=== PATIENT | male | born 1980 | race Caucasian/White ===

== ENCOUNTER 2016-10-22 11:12 | Emergency (ER) | payer SELFPAY ==
[~2016-10-22] VITALS: Ht 182.9 cm; Wt 84.1 kg
[~2016-10-22 11:12] MED LIST: ACETAMINOPHEN W1 TA6 PO; AUGMENTIN 875 M1 TAB PO; CEPHALEXIN500 M1 PO; FLEXERIL 1010 MG/TAB PO; KLONOPIN 0.5MG0.5 MG PO; KLONOPIN WAFERS1 MG PO; LEXAPRO10 MG PO; LORTAB 5/500 501 TAB PO; NAPROSYN500 MG PO; NEXIUM PO; NO HOME MEDICATIONS; NORCO 325 MG-51 TAB PO; NORCO 325 MG-7.1 TAB PO; PERCOCET 325 MG1 TA2 PO; PREDNISONE10 MG PO; PREDNISONE20 MG PO; PROAIR HFA0.09 MG/AC IH; SOMA 350MG350 MG/TAB PO; TRIAMCINOLONE A15 GM TP; TUSS PO; ULTRAM 50MG TAB50 MG; XANAX .25M0.25 MG/TA PO; XANAX 0.5MG0.5 MG PO; XANAX 1MG1 MG PO
[2016-10-22 11:14] VITALS: BP 119/70; PULSE 65; TEMP 98.2
== END 2016-10-22 12:05 | disposition home or self-care (01) ==
LOC: COL.ER 11:12
DX: L23.7 Allergic contact dermatitis due to plants, except food (principal); F41.9 Anxiety disorder, unspecified
CPT/HCPCS: J1100

== ENCOUNTER 2018-06-07 10:59 | Emergency (ER) | payer SELFPAY ==
[~2018-06-07] VITALS: Ht 182.9 cm; Wt 79.5 kg
[2018-06-07 11:07] VITALS: BP 169/68; TEMP 97.9
[2018-06-07 11:37] LABS: COLLECTION METHOD CLEAN CATCH
[2018-06-07 11:45] LABS: MUCOUS Present /lpf; PH 6 (5-8); SQUAMOUS EPITHELIAL 0-2 /hpf; URINE APPEARANCE Clear; URINE BACTERIA None Seen /hpf; URINE BILIRUBIN Negative (NEGATIVE); URINE BLOOD Negative (NEGATIVE); URINE COLOR Yellow; URINE GLUCOSE Negative (NEGATIVE); URINE KETONE 1+ (NEGATIVE); URINE LEUKOCYTE ESTERASE Negative (NEGATIVE); URINE NITRATE Negative (NEGATIVE); URINE PROTEIN(semi-quant) 1+ (NEGATIVE); URINE RBC 0-2 /hpf; URINE UROBILINOGEN Negative (NEGATIVE); URINE WBC 0-2 /hpf
[2018-06-07 11:53] LABS: TRICYCLIC ANTIDEPRESS URINE NEGATIVE
[2018-06-07 12:05] LABS: BASO # 0.1 (0.0-0.2); EOS # 0.1 (0.0-0.7); GRAN # 4.6 (1.4-6.5); GRAN % 67.9 % (42.2-75.2); HEMATOCRIT 41.6 % (42.0-52.0); HEMOGLOBIN 14.1 g/dl (13.5-18.0); LYMPH # 1.5 (1.2-3.4); LYMPH % 21.4 % (20.0-51.0); MEAN CELL VOLUME 92 fl (80.0-100.0); MEAN CORPUSCULAR HEMOGLOBIN 31 pg (27.0-31.0); MEAN CORPUSCULAR HGB CONC 34 g/dl (33.0-37.0); MEAN PLATELET VOLUME 11.2 fl (7.4-10.4); MONO # 0.6 (0.1-0.6); MONO % 8.4 % (1.7-9.3); PLATELET COUNT 257 K/mm3 (130-400); RED BLOOD COUNT 4.53 M/mm3 (4.20-5.60); REDCELL DISTRIBUTION WIDTH-CV 12.6 % (11.5-14.5)
[2018-06-07 12:12] LABS: ALANINE AMINOTRANSFERASE 31 U/L (21-72); ALKALINE PHOSPHATASE 84 U/L (50-136); ANION GAP 6 mmol/L (7-16); AST,SGOT 39 U/L (15-37); BILIRUBIN,TOTAL 0.6 mg/dL (0.0-1.0); BLOOD UREA NITROGEN 16 mg/dL (9-20); CALCIUM 9.2 mg/dL (8.4-10.2); CARBON DIOXIDE 26 mmol/L (22-30); CHLORIDE 106 mmol/L (98-107); CREATININE, serum 0.76 mg/dL (0.66-1.25); GLUCOSE 100 mg/dL (74-106); SODIUM 138 mmol/L (137-145); TOTAL PROTEIN 6.7 gm/dL (6.4-8.2)
[2018-06-07 12:14] LABS: ALCOHOL(ethanol),MEDICAL < 10 mg/dL
[2018-06-07 12:24] LABS: TROPONIN-I < 0.012 ng/mL (0.000-0.034)
[2018-06-07 13:22] VITALS: PULSE 79
== END 2018-06-07 13:22 | disposition home or self-care (01) ==
LOC: COL.ER 10:59
PROVIDERS: Nurse Practitioner Primary Care
DX: F41.9 Anxiety disorder, unspecified (principal); F15.90 Other stimulant use, unspecified, uncomplicated; F12.90 Cannabis use, unspecified, uncomplicated; F17.210 Nicotine dependence, cigarettes, uncomplicated
CPT/HCPCS: J2060; J7030

== ENCOUNTER 2018-06-28 02:18 | Emergency (ER) | payer SELFPAY ==
[~2018-06-28] VITALS: Ht 182.9 cm; Wt 84.1 kg
[2018-06-28 02:27] VITALS: BP 137/87; TEMP 98
[2018-06-28] MEDS ORDERED: ZITHROMAX 250M250 MG PO (04:12)
[2018-06-28 04:19] VITALS: PULSE 63
== END 2018-06-28 04:20 | disposition home or self-care (01) ==
LOC: COL.ER 02:18
DX: J40 Bronchitis, not specified as acute or chronic (principal); F17.210 Nicotine dependence, cigarettes, uncomplicated; F12.90 Cannabis use, unspecified, uncomplicated
CPT/HCPCS: J1885

== ENCOUNTER 2018-08-22 13:25 | Emergency (ER) | payer SELFPAY ==
[~2018-08-22] VITALS: Ht 182.9 cm; Wt 81.8 kg
[~2018-08-22 13:25] MED LIST changes: +ZITHROMAX 250M250 MG PO
[2018-08-22 13:32] VITALS: BP 136/86; PULSE 95; TEMP 97.7
== END 2018-08-22 15:09 | disposition left against medical advice (07) ==
LOC: COL.ER 13:25
DX: R51 Headache (principal); F12.10 Cannabis abuse, uncomplicated; F15.10 Other stimulant abuse, uncomplicated; F17.210 Nicotine dependence, cigarettes, uncomplicated
CPT/HCPCS: J1885

== ENCOUNTER 2018-09-05 12:56 | Emergency (ER) | payer SELFPAY ==
[2018-09-05 13:10] VITALS: BP 133/84; PULSE 97; TEMP 98.4
== END 2018-09-05 13:52 | disposition left against medical advice (07) ==
LOC: COL.ER 12:56
DX: R06.02 Shortness of breath (principal)

== ENCOUNTER 2019-09-17 14:24 | Emergency (ER) | payer SELFPAY ==
[~2019-09-17] VITALS: Ht 182.9 cm; Wt 84.1 kg
[2019-09-17 14:31] VITALS: BP 159/89; TEMP 98.1
[2019-09-17] MEDS ORDERED: FLEXERIL 1010 MG/TAB PO (14:54)
[2019-09-17] MEDS ORDERED: NORCO 325 MG-51 TAB PO (14:54)
[2019-09-17 15:17] VITALS: PULSE 74
== END 2019-09-17 15:12 | disposition home or self-care (01) ==
LOC: COL.ER 14:24
DX: M54.5 Low back pain (principal); F41.9 Anxiety disorder, unspecified; F17.210 Nicotine dependence, cigarettes, uncomplicated

== ENCOUNTER 2019-10-07 10:08 | Emergency (ER) | payer SELFPAY ==
[~2019-10-07] VITALS: Ht 182.9 cm; Wt 84.1 kg
[2019-10-07 10:37] VITALS: BP 127/87; TEMP 98.2
[2019-10-07] MEDS ORDERED: FLEXERIL 1010 MG/TAB PO (11:36)
[2019-10-07 11:51] VITALS: PULSE 78
== END 2019-10-07 11:50 | disposition home or self-care (01) ==
LOC: COL.ER 10:08
DX: M54.5 Low back pain (principal); F17.210 Nicotine dependence, cigarettes, uncomplicated

== ENCOUNTER 2019-10-21 21:15 | Emergency (ER) | payer SELFPAY ==
[~2019-10-21] VITALS: Ht 182.9 cm; Wt 77.3 kg
[2019-10-21 21:18] VITALS: BP 129/92; TEMP 99.4
[2019-10-21 22:20] LABS: TRICYCLIC ANTIDEPRESS URINE NEGATIVE
[2019-10-21 23:02] VITALS: PULSE 117
--- NOTE | 2019-10-22 14:20 | NUR ---
child protective services social worker left message with return number and also with resources to contact for the alcohol assessment that will be required to find a treatment program, on patient's cell number.
== END 2019-10-21 23:31 | disposition home or self-care (01) ==
LOC: COL.ER 21:15
PROVIDERS: Physician Assistant
DX: F15.129 Other stimulant abuse with intoxication, unspecified (principal); F19.20 Other psychoactive substance dependence, uncomplicated; F17.210 Nicotine dependence, cigarettes, uncomplicated

== ENCOUNTER 2020-01-10 11:05 | Emergency (ER) | payer SELFPAY ==
[~2020-01-10] VITALS: Ht 182.9 cm; Wt 79.5 kg
[2020-01-10 11:11] VITALS: TEMP 98.1
[2020-01-10] MEDS ORDERED: VALIUM 10MG10 MG/TAB PO (12:53)
[2020-01-10 13:15] VITALS: BP 142/90; PULSE 74
== END 2020-01-10 13:15 | disposition home or self-care (01) ==
LOC: COL.ER 11:05
DX: F15.93 Other stimulant use, unspecified with withdrawal (principal); M79.18 Myalgia, other site; F17.210 Nicotine dependence, cigarettes, uncomplicated
CPT/HCPCS: J1885

== ENCOUNTER 2020-02-04 01:33 | Emergency (ER) | payer SELFPAY ==
[~2020-02-04] VITALS: Ht 182.9 cm; Wt 81.8 kg
[~2020-02-04 01:33] MED LIST changes: +VALIUM 10MG10 MG/TAB PO
[2020-02-04 02:00] VITALS: TEMP 97.8
[2020-02-04 03:14] VITALS: BP 120/66; PULSE 85
== END 2020-02-04 03:14 | disposition home or self-care (01) ==
LOC: COL.ER 01:33
DX: H16.131 Photokeratitis, right eye (principal)

== ENCOUNTER 2020-04-12 17:18 | Emergency (ER) | payer SELFPAY ==
[~2020-04-12] VITALS: Ht 182.9 cm; Wt 84.1 kg
[2020-04-12 18:31] LABS: BASO % 0.3 % (0.0-2.0); EOS # 0.3 (0.0-0.7); EOS % 2.3 % (0-4.0); GRAN # 9.1 (1.4-6.5); GRAN % 76.4 % (42.2-75.2); HEMATOCRIT 43.9 % (42.0-52.0); HEMOGLOBIN 14.2 g/dl (13.5-18.0); LYMPH # 1.7 (1.2-3.4); LYMPH % 13.8 % (20.0-51.0); MEAN CELL VOLUME 95 fl (80.0-100.0); MEAN CORPUSCULAR HEMOGLOBIN 31 pg (27.0-31.0); MEAN CORPUSCULAR HGB CONC 32 g/dl (33.0-37.0); MEAN PLATELET VOLUME 10.5 fl (7.4-10.4); MONO # 0.8 (0.1-0.6); MONO % 6.9 % (1.7-9.3); PLATELET COUNT 260 K/mm3 (130-400); RED BLOOD COUNT 4.62 M/mm3 (4.20-5.60); REDCELL DISTRIBUTION WIDTH-CV 13.2 % (11.5-14.5)
[2020-04-12 19:15] VITALS: BP 124/76; PULSE 72; TEMP 98.2
== END 2020-04-12 19:15 | disposition home or self-care (01) ==
LOC: COL.ER 17:18
PROVIDERS: Nurse Practitioner
DX: J02.9 Acute pharyngitis, unspecified (principal); F17.200 Nicotine dependence, unspecified, uncomplicated; Z20.828 Contact with and (suspected) exposure to other viral communicable diseases
CPT/HCPCS: J0561; J1885; J7030

== ENCOUNTER 2020-04-17 08:32 | Emergency (ER) | payer OTHER ==
[2020-04-17 08:38] VITALS: TEMP 98.5
[2020-04-17] MEDS ORDERED: BACTRIM DS 8001 TAB PO (09:54)
[2020-04-17] MEDS ORDERED: IBU400 MG PO (09:54)
[2020-04-17] MEDS ORDERED: TYLENOL 8 HR PO (09:55)
[2020-04-17 10:29] LABS: BASO % 0.4 % (0.0-2.0); EOS # 0.1 (0.0-0.7); EOS % 0.6 % (0-4.0); GRAN # 8.2 (1.4-6.5); GRAN % 72.2 % (42.2-75.2); HEMATOCRIT 43.5 % (42.0-52.0); HEMOGLOBIN 14.6 g/dl (13.5-18.0); LYMPH # 1.7 (1.2-3.4); LYMPH % 14.7 % (20.0-51.0); MEAN CELL VOLUME 90 fl (80.0-100.0); MEAN CORPUSCULAR HEMOGLOBIN 30 pg (27.0-31.0); MEAN CORPUSCULAR HGB CONC 34 g/dl (33.0-37.0); MEAN PLATELET VOLUME 10.5 fl (7.4-10.4); MONO # 1.3 (0.1-0.6); MONO % 11.6 % (1.7-9.3); PLATELET COUNT 301 K/mm3 (130-400); RED BLOOD COUNT 4.84 M/mm3 (4.20-5.60); REDCELL DISTRIBUTION WIDTH-CV 12.7 % (11.5-14.5)
[2020-04-17 10:42] LABS: ALBUMIN 4.5 gm/dL (3.5-5.0); C-REACTIVE PROTEIN 8.7 mg/dL (0.0-0.9); CALCIUM 9.4 mg/dL (8.4-10.2); CREATININE, serum 0.84 (0.66-1.25); POTASSIUM 4.3 mmol/L (3.4-5.0); TOTAL PROTEIN 8.1 gm/dL (6.4-8.2)
[2020-04-17] MEDS ORDERED: CLEOCIN HCL300 MG PO (11:50)
[2020-04-17] MEDS ORDERED: MOTRIN 800800 MG/TAB PO (11:57)
[2020-04-17 12:08] VITALS: BP 150/105; PULSE 81
== END 2020-04-17 12:07 | disposition home or self-care (01) ==
LOC: COL.ER 08:32
PROVIDERS: Physician Assistant
DX: J36 Peritonsillar abscess (principal); Z23 Encounter for immunization
CPT/HCPCS: J1100; J2405; J7030

== ENCOUNTER 2021-03-06 14:28 | Emergency (ER) | payer SELFPAY ==
[~2021-03-06] VITALS: Ht 182.9 cm; Wt 90.9 kg
[~2021-03-06 14:28] MED LIST changes: +BACTRIM DS 8001 TAB PO; +CLEOCIN HCL300 MG PO; +IBU400 MG PO; +MOTRIN 800800 MG/TAB PO; +TYLENOL 8 HR PO
[2021-03-06 14:47] VITALS: BP 121/71; PULSE 87
== END 2021-03-06 15:50 | disposition home or self-care (01) ==
LOC: COL.ER 14:28
DX: L23.7 Allergic contact dermatitis due to plants, except food (principal); F17.200 Nicotine dependence, unspecified, uncomplicated
CPT/HCPCS: J1100

== ENCOUNTER 2024-01-01 18:31 | Emergency (ER) | payer SELFPAY ==
[~2024-01-01] VITALS: Ht 182.9 cm; Wt 97.7 kg
[2024-01-01 18:36] VITALS: BP 128/80; TEMP 98.2
[2024-01-01] MEDS ORDERED: dexAMETHasone 10 MG/ML VIAL IM ONE (19:00)
[2024-01-01 19:30] VITALS: PULSE 72
== END 2024-01-01 19:32 | disposition home or self-care (01) ==
LOC: COL.ER 18:31
DX: L23.7 Allergic contact dermatitis due to plants, except food (principal); F17.290 Nicotine dependence, other tobacco product, uncomplicated
CPT/HCPCS: J1100

== ENCOUNTER 2024-01-17 19:08 | Emergency (ER) | payer OTHER ==
[~2024-01-17] VITALS: Ht 182.9 cm; Wt 97.7 kg
[2024-01-17 19:11] VITALS: TEMP 98
[2024-01-17] MEDS ORDERED: Ketorolac 60 MG/2 ML VIAL IM ONE (19:45)
[2024-01-17] MEDS ORDERED: Cyclobenzaprine 10 MG TAB PO ONE (20:15)
[2024-01-17] MEDS ORDERED: Home Cyclobenzaprine 10 MG #2 TABS/PACK PO ONE (20:15)
[2024-01-17] MEDS ORDERED: FLEXERIL 1010 MG/TAB PO (20:21)
[2024-01-17 20:25] VITALS: BP 128/80; PULSE 90
== END 2024-01-17 20:25 | disposition home or self-care (01) ==
LOC: COL.ER 19:08
DX: M62.830 Muscle spasm of back (principal)
CPT/HCPCS: J1885